=== PATIENT | male | born 1970 ===

== ENCOUNTER → 2020-11-15 | Outpatient (CLI) | payer SELFPAY ==
--- NOTE | 2020-11-15 18:49 | Diagnostic Imaging Report ---
INDICATION: Claudication COMPARISON: None available. TECHNIQUE: Ankle to brachial indices were obtained on 11/15/2020. FINDINGS: The systolic blood pressure within the left upper extremity is 122 mmHg. The systolic blood pressure within the left dorsalis pedis is 140 mmHg. The systolic blood pressure within the left posterior tibial artery is 120 mmHg. Therefore, the left ankle to brachial index is 1.20. The systolic blood pressure within the right posterior tibial artery is 152 mmHg and it is 140 mmHg within the right dorsalis pedis artery. Therefore, the right ankle to brachial index is 1.25. IMPRESSION: Normal ankle to brachial indices bilaterally. Dictated by: Dictated on workstation # [id number]
== END ==
LOC: RAD 10:58
PROVIDERS: ATTEND Pediatrics
DX: I73.9 Peripheral vascular disease, unspecified (principal)
CPT/HCPCS: 93922